=== PATIENT | female | born 1940 | race Caucasian/White ===

== ENCOUNTER 2023-01-22 06:12 | Inpatient (IN) | payer MEDICARE, BC ==
[2023-01-20 14:18] LABS: CLARITY,URINE CLEAR (Clear); COLOR,URINE YELLOW (Yellow); GLUCOSE, URINE NEGATIVE (Neg); KETONES,URINE NEGATIVE (Neg); LEUKOCYTE ESTERASE ,URINE NEGATIVE (Neg); NITRITES, URINE NEGATIVE (Neg); OCCULT BLOOD,URINE NEGATIVE (Neg); PROTEIN,URINE NEGATIVE (Neg); UROBILINOGEN,URINE 0.2 E.U/dL (0.2-1.0)
[2023-01-20 14:20] LABS: UA COLLECTION TYPE CLN CATCH MIDSTREAM
[2023-01-20 15:32] LABS: BASOPHILS % (AUTO) 0.4 % (0-1); EOSINOPHILS % (AUTO) 0.4 % (0-6); LYMPHOCYTES # (AUTO) 2.1 X10'3 (1.1-4.8); LYMPHOCYTES % (AUTO) 29.6 % (21-51); MEAN CORPUSCULAR HEMOGLOBIN 32.3 PG (27.0-31.0); MEAN CORPUSCULAR HGB CONC 33.4 g/dL (33.0-36.5); MEAN CORPUSCULAR VOLUME 96.7 FL (78-98); MEAN PLATELET VOLUME 9.8 FL (7.4-10.4); MONOCYTES # (AUTO) 0.4 X10'3 (0-0.9); MONOCYTES % (AUTO) 6.1 % (2-12); NEUTROPHILS # (AUTO) 4.4 X10'3 (1.8-7.7); NEUTROPHILS % (AUTO) 63.5 % (42-75); PRE OP HEMATOCRIT 44.8 % (35.0-45.0); PRE OP PLATELET COUNT 160 X10'3 (140-440); RED BLOOD COUNT 4.63 X10'6 (4.20-5.60); RED CELL DISTRIBUTION WIDTH 13.4 % (11.5-14.5)
[2023-01-20 15:50] LABS: ALBUMIN 4.1 G/DL (3.4-5.0); ALBUMIN/GLOBULIN RATIO 1.2 (1.1-1.5); ALKALINE PHOSPHATASE 67 IU/L (46-116); CALCIUM 9.8 MG/DL (8.5-10.1); CHLORIDE 100 MMOL/L (99-107); CREATININE 0.94 MG/DL (0.40-0.90); PRE OP ALT 25 U/L (30-65); PRE OP ANION GAP 10 (8-16); PRE OP AST 29 U/L (10-37); PRE OP BILIRUB, TOTAL 1.2 MG/DL (0.0-1.0); PRE OP GLUCOSE 99 MG/DL (70-104); PRE OP POTASSIUM 4.1 MMOL/L (3.4-5.1); PRE OP SODIUM 138 MMOL/L (135-145); TOTAL CARBON DIOXIDE 27.8 MMOL/L (24-32); TOTAL PROTEIN 7.4 G/DL (6.4-8.2); eGFR 57 ML/MIN
[2023-01-20 15:53] LABS: BLOOD UREA NITROGEN 23 MG/DL (7-18); BUN/CREATININE RATIO 24.5 (10.0-20.0)
[2023-01-20 16:00] LABS: ABG BASE EXCESS 1.4 mmol/L (-2.0-2.0); ABG HCO3 24.9 mmol/L (22.0-26.0); ABG OXYGEN SATURATION 96.9 % (94-97); ABG PO2 (T) 90.2 mmHg (75.0-100.0); ALLEN'S TEST POSITIVE; FCOHb 0.9 % (0.0-3.9); FLOW 0 L/min; FMetHb 0.5 % (0.0-1.5); FO2Hb 95.5 % (94-97); TOTAL HEMOGLOBIN 15.6 G/dl (12.0-16.0)
[2023-01-20 16:39] LABS: PRE OP PROTIME 11.1 SECONDS (9.0-12.0)
[~2023-01-22] VITALS: Ht 160 cm; Wt 61.7 kg
[~2023-01-22 06:12] MED LIST: DILT-88 PO; Insulin Reg/NS 100units/100mL 100 ML IV SCH; LEVO50TA8 PO; LORazepam 2 mg/ml vial IV ONE; SPIR25TA5 PO; albuterol 2.5 MG/3 ML nebule NEB PRN; ceFAZolin 1000mg inj ONE; cefazolin 2gm/D5W 100mL 100 ML IV ONE; epiNEPHrine 1 mg/ml inj ONE; famotidine 20mg tablet PO ONE; metoprolol tartrate 12.5mg (1/2 tablet) PO ONE; mupirocin 2% nasal ointment 1gm UD NS ONE; ringers solution, lacted 1,000 ML IV SCH; vancomycin/NS 1 GM in NS 250 ML IV ONE
[2023-01-22] MEDS ORDERED: BUPIVAcaine/PF 2.5 mg/ml (0.25%) 30ml vial ONE (06:38)
[2023-01-22] MEDS ORDERED: LORazepam 2 mg/ml vial ONE (06:58)
[2023-01-22] MEDS ORDERED: sodium bicarbonate (8.4%) 1 mEq/ml syringe ONE (07:00)
[2023-01-22] MEDS ORDERED: calcium chloride 100 MG/1 ML inj IV ONE (07:00)
[2023-01-22] MEDS ORDERED: magnesium sulf 1 GM/2 ML ONE (07:00)
[2023-01-22] MEDS ORDERED: heparin 1,000 units/ml 10ml inj ONE (07:00)
[2023-01-22] MEDS ORDERED: albumin (human) 25% 100 ML IV solution IV ONE (07:00)
[2023-01-22] MEDS ORDERED: LIDOcaine 2% 10ml vial ONE (07:00)
[2023-01-22] MEDS ORDERED: aminocaproic acid 250 MG/1 ML inj. ONE (07:00)
[2023-01-22] MEDS ORDERED: methylPREDNISolone sod succ 1000mg vial ONE (07:00)
[2023-01-22] MEDS ORDERED: heparin 10,000 units/1 ML INJ ONE (07:00)
[2023-01-22] MEDS ORDERED: potassium Cl 2 mEq/ml inj IV ONE (07:00)
[2023-01-22] MEDS ORDERED: mannitol 12.5gm/50mL VIAL IV ONE (07:00)
--- NOTE | 2023-01-22 07:30 | NUR ---
PT ADMITTED FOR CABG THIS MORNING-PREP FINISHED, WHILE WAITING FOR DR'S-WAS DETERMINED TO HAVE CONFLICT RE:SURGERY TODAY. PT WILL BE ADMITTED TO STAY OVERNIGHT AND HAVE SX TOMORROW INSTEAD. PT AND FRIENDS UNDERSTAND, ABLE TO FEED BREAKFAST, WAITING FOR A BED.
[2023-01-22] MEDS ORDERED: potassium CL 10mEq/100ml bag 100 ML IV PRN (09:15)
[2023-01-22] MEDS ORDERED: vancomycin/NS 1 GM ADD-VANTAGE 250 ML IV ONE (09:15)
[2023-01-22] MEDS ORDERED: potassium Cl 40MEQ/270ML bag 250 ML IV PRN (09:15)
[2023-01-22] MEDS ORDERED: gabapentin 400mg capsule PO ONE (09:15)
[2023-01-22] MEDS ORDERED: MESSAGE TO PHARMACY IJ ONE (09:15)
[2023-01-22] MEDS ORDERED: potassium Cl 20 mEq SR tablet PO PRN (09:15)
[2023-01-22] MEDS ORDERED: Insulin Reg/NS 100units/100mL 100 ML IV SCH (09:15)
[2023-01-22] MEDS ORDERED: insulin glargine (Lantus) pen - multi-dose SQ PRN (09:15)
[2023-01-22] MEDS ORDERED: magnesium 4gm in 100ml NS 100 ML IV PRN (09:15)
[2023-01-22] MEDS ORDERED: magnesium 2GM in 50ml NS 50 ML IV PRN (09:15)
[2023-01-22] MEDS ORDERED: dextrose 50%-water 50ml dispensing syringe IV PRN (09:15)
[2023-01-22] MEDS ORDERED: potassium Cl 40MEQ/1/2NS 520ml 520 ML IV PRN (09:15)
[2023-01-22] MEDS ORDERED: cefazolin 2gm/D5W 100mL 100 ML IV ONE (09:15)
--- NOTE | 2023-01-22 11:30 | NUR ---
REPORT CALLED TO SONA, ALL QUESTIONS ANSWERED, PT TAKEN WITH ALL BELONGINGS TO ROOM 3028B, BED LOW AND LOCKED, CALL LIGHT IN REACH, PRIMARY NURSE AWARE
--- NOTE | 2023-01-22 11:35 | NUR ---
Patient in room PCU 3028. I have received report from Carmelita CRAFT and had the opportunity to ask questions and assume patient care.Pt settled into room. Call light in reach. Addendum: 01/22/23 at 1158 by Juana Doshi RN Amended: Links added.
[2023-01-22 11:50] VITALS: BP 102/50
[2023-01-22 12:43] LABS: BASOPHILS % (AUTO) 0.7 % (0-1); EOSINOPHILS % (AUTO) 0.7 % (0-6); HEMATOCRIT 41.4 % (35.0-45.0); LYMPHOCYTES # (AUTO) 1.8 X10'3 (1.1-4.8); LYMPHOCYTES % (AUTO) 29.6 % (21-51); MEAN CORPUSCULAR HEMOGLOBIN 32.7 PG (27.0-31.0); MEAN CORPUSCULAR HGB CONC 33.8 g/dL (33.0-36.5); MONOCYTES # (AUTO) 0.5 X10'3 (0-0.9); MONOCYTES % (AUTO) 8.2 % (2-12); NEUTROPHILS # (AUTO) 3.7 X10'3 (1.8-7.7); NEUTROPHILS % (AUTO) 60.8 % (42-75); PLATELET COUNT 142 X10'3 (140-440); RED BLOOD COUNT 4.26 X10'6 (4.20-5.60); RED CELL DISTRIBUTION WIDTH 13.8 % (11.5-14.5)
[2023-01-22 12:55] LABS: ALBUMIN 3.6 G/DL (3.4-5.0); ANION GAP 11 (8-16); BLOOD UREA NITROGEN 26 MG/DL (7-18); BUN/CREATININE RATIO 25.2 (10.0-20.0); CALCIUM 9.2 MG/DL (8.5-10.1); CHLORIDE 104 MMOL/L (99-107); CREATININE 1.03 MG/DL (0.40-0.90); GLUCOSE 83 MG/DL (70-104); SODIUM 140 MMOL/L (135-145); TOTAL CARBON DIOXIDE 24.9 MMOL/L (24-32); eGFR 51 ML/MIN
[2023-01-22 14:41] VITALS: BP 101/64
--- NOTE | 2023-01-22 18:00 | NUR ---
Problems reprioritized. Patient report given, questions answered & plan of care reviewed with Yomaira CRAFT.
--- NOTE | 2023-01-22 18:24 | NUR ---
Problems reprioritized. Patient report given, questions answered & plan of care reviewed with Trupti CRAFT. Pt eating dinner, watching movie on tablet. Call light in reach. Addendum: 01/22/23 at 1825 by Juana Doshi RN Amended: Links added.
[2023-01-22 20:50] VITALS: BP 114/70
[2023-01-22] MEDS: spironolactone 25 MG tablet PO SCH (21:37)
[2023-01-22] MEDS: mupirocin 2% nasal ointment 1gm UD NS SCH (21:38)
[2023-01-23] VITALS (32 sets, daily range): BP systolic 77–134; BP diastolic 46–73
[2023-01-23] MEDS ORDERED: vancomycin/NS 1 GM ADD-VANTAGE 250 ML IV ONE (05:30)
[2023-01-23] MEDS ORDERED: insulin glargine (Lantus) pen - multi-dose SQ PRN ×2 (05:30→12:25)
[2023-01-23] MEDS ORDERED: cefazolin 2gm/D5W 100mL 100 ML IV ONE (05:30)
[2023-01-23] MEDS ORDERED: BUPIVAcaine 0.5% inj/PF 30 ML ONE (06:42)
[2023-01-23] MEDS ORDERED: ceFAZolin 1000mg inj ONE (06:42)
--- NOTE | 2023-01-23 06:45 | NUR ---
Problems reprioritized. Patient report given, questions answered & plan of care reviewed with Juana CRAFT.
[2023-01-23] MEDS ORDERED: epiNEPHrine 1 mg/ml inj ONE (06:46)
[2023-01-23] MEDS: levoTHYROXINE 25mcg tablet PO SCH (07:00)
[2023-01-23] MEDS ORDERED: ceFAZolin 1000mg inj IR ONE (07:30)
[2023-01-23] MEDS ORDERED: epiNEPHrine 1 MG/ML 1 ml ampule **BRONCH ONLY IJ ONE (07:31)
[2023-01-23] MEDS ORDERED: heparin 10,000 units/1 ML INJ IR ONE (07:32)
[2023-01-23] MEDS ORDERED: SUfentanil 50mcg/ml 1ml amp IV ONE (07:41)
[2023-01-23] MEDS ORDERED: propofol inj 20 ML IV ONE (07:41)
[2023-01-23] MEDS ORDERED: MIDAZolam 1 MG/ML 5ML VIAL ONE (07:41)
[2023-01-23] MEDS ORDERED: sevoflurane 250ml liquid IH ONE (07:43)
[2023-01-23] MEDS ORDERED: rocuronium 10mg/ml inj IV ONE ×3 (07:43→07:44)
[2023-01-23] MEDS ORDERED: protamine sulf. 10mg/ml inj. IV ONE (07:43)
[2023-01-23] MEDS: mupirocin 2% nasal ointment 1gm UD NS SCH ×2 (08:00→19:48)
[2023-01-23] MEDS ORDERED: spironolactone 25 MG tablet PO SCH (08:00)
[2023-01-23] MEDS: diltiazem CD 120mg capsule (once-daily) PO SCH (08:00)
[2023-01-23 08:39] LABS: ABG BASE EXCESS 2.7 mmol/L (-2.0-2.0); ABG HCO3 25.9 mmol/L (22.0-26.0); ABG OXYGEN SATURATION 99.1 % (94-97); ABG PCO2 35.2 mmHg (32.0-45.0); ABG PO2 146.5 mmHg (75.0-100.0); CL (ABG) 104 mmol/L (99-107); FCOHb 0.9 % (0.0-3.9); FMetHb 0.1 % (0.0-1.5); FO2Hb 98.1 % (94-97); GLUCOSE (ABG) 110 mg/dl (70-104); IONIZED CA (ABG) 1.14 mmol/L (1.10-1.30); K (ABG) 3.8 mmol/L (3.5-5.1); TOTAL HEMOGLOBIN 13.7 G/dl (12.0-16.0)
[2023-01-23 09:42] LABS: ABG BASE EXCESS 2.8 mmol/L (-2.0-2.0); ABG HCO3 25.6 mmol/L (22.0-26.0); ABG OXYGEN SATURATION 99.5 % (94-97); ABG PCO2 31.5 mmHg (32.0-45.0); ABG PO2 431.2 mmHg (75.0-100.0); CL (ABG) 101 mmol/L (99-107); FCOHb 0.6 % (0.0-3.9); FMetHb 0.3 % (0.0-1.5); FO2Hb 98.6 % (94-97); GLUCOSE (ABG) 113 mg/dl (70-104); IONIZED CA (ABG) 0.89 mmol/L (1.10-1.30); K (ABG) 3.7 mmol/L (3.5-5.1); TOTAL HEMOGLOBIN 7.9 G/dl (12.0-16.0)
[2023-01-23 10:23] LABS: ABG BASE EXCESS VENOUS -2.5 mmol/L (-2.0 - 2.0); ABG HCO3 VENOUS 25.8 mmol/L (21.0-28.0); ABG PO2 VENOUS 74.8 mmHg (25.0-35.0); CL (ABG) 101 mmol/L (99-107); FHHb VENOUS 10.5 %; FMetHb VENOUS 0.2 % (0.0 - 0.5); FO2Hb VENOUS 88.3 %; GLUCOSE (ABG) 139 mg/dl (70-104); IONIZED CA (ABG) 0.95 mmol/L (1.10-1.30); K (ABG) 4.4 mmol/L (3.5-5.1); TOTAL HEMOGLOBIN 7.7 G/dl (12.0-16.0)
[2023-01-23 10:41] LABS: ABG BASE EXCESS -1.7 mmol/L (-2.0-2.0); ABG HCO3 24.9 mmol/L (22.0-26.0); ABG OXYGEN SATURATION 99.4 % (94-97); ABG PCO2 52.6 mmHg (32.0-45.0); ABG PO2 280.2 mmHg (75.0-100.0); CL (ABG) 102 mmol/L (99-107); FCOHb 0.8 % (0.0-3.9); FMetHb 0.1 % (0.0-1.5); FO2Hb 98.5 % (94-97); GLUCOSE (ABG) 148 mg/dl (70-104); IONIZED CA (ABG) 0.91 mmol/L (1.10-1.30); K (ABG) 4.2 mmol/L (3.5-5.1); TOTAL HEMOGLOBIN 7.6 G/dl (12.0-16.0)
[2023-01-23 11:05] LABS: ABG BASE EXCESS 1.3 mmol/L (-2.0-2.0); ABG HCO3 25.2 mmol/L (22.0-26.0); ABG OXYGEN SATURATION 99.5 % (94-97); ABG PCO2 35.8 mmHg (32.0-45.0); ABG PO2 345.9 mmHg (75.0-100.0); CL (ABG) 101 mmol/L (99-107); FCOHb 1.2 % (0.0-3.9); FMetHb 0.3 % (0.0-1.5); GLUCOSE (ABG) 137 mg/dl (70-104); IONIZED CA (ABG) 1.34 mmol/L (1.10-1.30)
--- NOTE | 2023-01-23 11:26 | NUR ---
Noted pt s/p CABG today per EMR; would benefit from written/verbal high protein/HH diet eds once appropriate post-op prior to discharge. Addendum: 01/23/23 at [address] Amended: Links added. Addendum: 01/23/23 at [address] CABG Consult: Pt s/p CABG today per EMR; would benefit from written/verbal high protein/HH diet eds once appropriate post-op prior to discharge.
[2023-01-23 11:29] LABS: ABG BASE EXCESS VENOUS -0.3 mmol/L (-2.0 - 2.0); ABG HCO3 VENOUS 24.5 mmol/L (21.0-28.0); ABG PCO2 VENOUS 40.9 mmHg (38.0-51.0); ABG PO2 VENOUS 33.8 mmHg (25.0-35.0); CL (ABG) 105 mmol/L (99-107); FCOHb VENOUS 1.3 % (0.0- 3.9); FHHb VENOUS 39.8 %; FMetHb VENOUS 0.3 % (0.0 - 0.5); FO2Hb VENOUS 58.6 %; GLUCOSE (ABG) 119 mg/dl (70-104); IONIZED CA (ABG) 1.26 mmol/L (1.10-1.30); K (ABG) 3.7 mmol/L (3.5-5.1)
[2023-01-23 11:33] LABS: ACTIVATED CLOTTING TIME 136 SEC (101-148)
[2023-01-23 11:52] LABS: ABG BASE EXCESS VENOUS -3.4 mmol/L (-2.0 - 2.0); ABG PO2 VENOUS 34.3 mmHg (25.0-35.0); CL (ABG) 113 mmol/L (99-107); FCOHb VENOUS 0.9 % (0.0- 3.9); FHHb VENOUS 39.4 %; FMetHb VENOUS 0.1 % (0.0 - 0.5); FO2Hb VENOUS 59.6 %; GLUCOSE (ABG) 103 mg/dl (70-104); IONIZED CA (ABG) > 2.84 mmol/L (1.10-1.30); K (ABG) 3.3 mmol/L (3.5-5.1); TOTAL HEMOGLOBIN 10.3 G/dl (12.0-16.0)
[2023-01-23] MEDS ORDERED: albumin (Human) 5% 250ml 250 ML IV ONE ×3 (11:55)
[2023-01-23] MEDS ORDERED: mineral oil 133ml enema RC PRN (12:25)
[2023-01-23] MEDS ORDERED: metoclopramide 5 mg/ml inj IV PRN (12:25)
[2023-01-23] MEDS ORDERED: sodium phosphate inj. 30 MMOL in dextrose 5%-water 250 ML IV PRN (12:25)
[2023-01-23] MEDS ORDERED: potassium Cl 20 mEq SR tablet PO PRN (12:25)
[2023-01-23] MEDS ORDERED: niCARDipine-NS 40mg/200ml IVPB 200 ML IV PRN (12:25)
[2023-01-23] MEDS ORDERED: nitroGLYCERIN-Tridil 50MG/D5W 250 ML IV PRN ×2 (12:25→12:37)
[2023-01-23] MEDS ORDERED: magnesium hydroxide 30ml (MOM) UD suspension PO PRN (12:25)
[2023-01-23] MEDS ORDERED: DOPamine 400mg/D5W 250ml 250 ML IV PRN (12:25)
[2023-01-23] MEDS ORDERED: dextrose 50%-water 50ml dispensing syringe IV PRN (12:25)
[2023-01-23] MEDS ORDERED: Insulin Reg/NS 100units/100mL 100 ML IV SCH (12:25)
[2023-01-23] MEDS ORDERED: HYDROcodone/acetaminophen 10/325mg tab PO PRN (12:25)
[2023-01-23] MEDS ORDERED: acetaminophen 325mg tablet PO PRN ×2 (12:25)
[2023-01-23] MEDS: sodium chloride 0.45% 1,000 ML IV SCH (12:25)
[2023-01-23] MEDS ORDERED: ondansetron/PF 4mg/2ml inj IV PRN (12:25)
[2023-01-23] MEDS ORDERED: Neutra Phos packet PO PRN (12:25)
[2023-01-23] MEDS ORDERED: bisacodyl 10mg suppository rectal RC PRN (12:25)
[2023-01-23] MEDS ORDERED: potassium CL 10mEq/100ml bag 100 ML IV PRN (12:25)
[2023-01-23] MEDS ORDERED: sodium phosphate inj. 15 MMOL in dextrose 5%-water 250 ML IV PRN (12:25)
[2023-01-23] MEDS ORDERED: potassium Cl 40MEQ/1/2NS 520ml 520 ML IV PRN (12:25)
[2023-01-23] MEDS ORDERED: magnesium 2GM in 50ml NS 50 ML IV PRN (12:25)
[2023-01-23] MEDS ORDERED: morphine 4 MG/ML inj SYRINge IV PRN (12:25)
[2023-01-23] MEDS ORDERED: magnesium 4gm in 100ml NS 100 ML IV PRN (12:25)
[2023-01-23] MEDS ORDERED: normal saline 250ml IV soln 250 ML IV PRN (12:25)
[2023-01-23] MEDS ORDERED: potassium Cl 40MEQ/270ML bag 250 ML IV PRN (12:25)
[2023-01-23] MEDS ORDERED: MESSAGE TO NURSING PO ONE (13:00)
[2023-01-23] MEDS: NORepinephrine 8mg/ 250ml NS 250 ML IV SCH (13:00)
--- NOTE | 2023-01-23 13:00 | NUR ---
Received to room 2010-, accompanied by MDs and surgical crew. Placed on ventilator, to quality assurance monitor chassis, arterial line and PA line pressure zeroed & monitored. Chest tubes to suction at 20 cm. Meyer cath to gravity drainage. Dressings are dry and intact. See assessment record. All vasoactive drugs are infusing via central line.
[2023-01-23 13:06] LABS: ABG BASE EXCESS -1.3 mmol/L (-2.0-2.0); ABG HCO3 24.1 mmol/L (22.0-26.0); ABG OXYGEN SATURATION 97.9 % (94-97); ABG PO2 (T) 141.1 mmHg (75.0-100.0); FCOHb 0.2 % (0.0-3.9); FMetHb 0.8 % (0.0-1.5); FO2Hb 96.9 % (94-97); PATIENT TEMPERATURE 34.6; PEEP 5 cm H2O; RESPIRATORY RATE 12 b/min; TIDAL VOLUME 350 mL; TOTAL HEMOGLOBIN 9.3 G/dl (12.0-16.0)
[2023-01-23 13:13] LABS: BASOPHILS % (AUTO) 0.1 % (0-1); EOSINOPHILS % (AUTO) 0.3 % (0-6); HEMATOCRIT 27.5 % (35.0-45.0); HEMOGLOBIN 8.9 g/dl (12.0-16.0); LYMPHOCYTES # (AUTO) 1.6 X10'3 (1.1-4.8); LYMPHOCYTES % (AUTO) 15.1 % (21-51); MEAN CORPUSCULAR HEMOGLOBIN 31.9 PG (27.0-31.0); MEAN CORPUSCULAR HGB CONC 32.5 g/dL (33.0-36.5); MEAN CORPUSCULAR VOLUME 97.9 FL (78-98); MEAN PLATELET VOLUME 9.6 FL (7.4-10.4); MONOCYTES # (AUTO) 0.7 X10'3 (0-0.9); MONOCYTES % (AUTO) 6.5 % (2-12); NEUTROPHILS # (AUTO) 8.1 X10'3 (1.8-7.7); RED CELL DISTRIBUTION WIDTH 13.7 % (11.5-14.5); WHITE BLOOD COUNT 10.4 X10'3 (4.5-11.0)
[2023-01-23 13:26] LABS: APTT 62 SECONDS (22-32)
[2023-01-23 13:36] LABS: ALANINE AMINOTRANSFERASE 9 U/L (12-78); ALBUMIN/GLOBULIN RATIO 2.7 (1.1-1.5); ALKALINE PHOSPHATASE 15 IU/L (46-116); ANION GAP 13 (8-16); ASPARTATE AMINO TRANSFERASE 19 U/L (10-37); BLOOD UREA NITROGEN 13 MG/DL (7-18); BUN/CREATININE RATIO 23.2 (10.0-20.0); CALCIUM 7.9 MG/DL (8.5-10.1); CHLORIDE 108 MMOL/L (99-107); CREATININE 0.56 MG/DL (0.40-0.90); GLUCOSE 119 MG/DL (70-104); MAGNESIUM 3.4 MG/DL (1.5-2.4); PHOSPHORUS 2.4 MG/DL (2.3-4.5); POTASSIUM 3.7 MMOL/L (3.5-5.1); SODIUM 144 MMOL/L (135-145); TOTAL CARBON DIOXIDE 23.4 MMOL/L (24-32); TOTAL PROTEIN 4.1 G/DL (6.4-8.2); eGFR > 90 ML/MIN
[2023-01-23 13:44] LABS: PLATELET COUNT 47 X10'3 (140-440)
[2023-01-23] MEDS: gabapentin 300mg capsule PO SCH ×2 (13:45→21:16)
[2023-01-23] MEDS: albumin (Human) 5% 250ml 250 ML IV PRN ×2 (13:46→19:49)
[2023-01-23] MEDS: potassium Cl 20mEq/100mL bag 100 ML IV PRN ×3 (13:46→16:23)
--- NOTE | 2023-01-23 13:59 | NUR ---
Plt down to 47, Fibrinogen 83 and >200ml out of chest tube in the last 1h; Dr. Mcwilliams called; orders for x1 unit plt and x2 units FFP. CI up to 1.9 from 1.5.
[2023-01-23] MEDS: Insulin Reg/NS 100units/100mL 100 ML IV SCH (14:14)
[2023-01-23 14:17] LABS: PLATELET ESTIMATE DECREASED; TOTAL CELLS COUNTED 100
[2023-01-23] MEDS: ceFAZolin/D5W- 1GM premix 50 ML IV SCH ×2 (15:57→23:48)
--- NOTE | 2023-01-23 18:10 | NUR ---
Problems reprioritized. Patient report given, questions answered & plan of care reviewed with Margareth CRAFT.
--- NOTE | 2023-01-23 18:15 | NUR ---
Patient in room CICU 2010. I have received report from Jez CRATF and had the opportunity to ask questions and assume patient care.
[2023-01-23] MEDS: sennosides/docusate sodium tablet PO SCH (19:48)
[2023-01-23 20:13] LABS: BASOPHILS % (AUTO) 0 % (0-1); EOSINOPHILS % (AUTO) 0 % (0-6); LYMPHOCYTES # (AUTO) 0.2 X10'3 (1.1-4.8); LYMPHOCYTES % (AUTO) 2.1 % (21-51); MEAN CORPUSCULAR HEMOGLOBIN 32.6 PG (27.0-31.0); MEAN CORPUSCULAR HGB CONC 33.6 g/dL (33.0-36.5); MEAN CORPUSCULAR VOLUME 96.8 FL (78-98); MEAN PLATELET VOLUME 9.5 FL (7.4-10.4); MONOCYTES # (AUTO) 0.3 X10'3 (0-0.9); MONOCYTES % (AUTO) 3.7 % (2-12); NEUTROPHILS # (AUTO) 7.1 X10'3 (1.8-7.7); NEUTROPHILS % (AUTO) 94.2 % (42-75); PLATELET COUNT 152 X10'3 (140-440); RED BLOOD COUNT 1.94 X10'6 (4.20-5.60); RED CELL DISTRIBUTION WIDTH 13.8 % (11.5-14.5); WHITE BLOOD COUNT 7.6 X10'3 (4.5-11.0)
[2023-01-23 20:18] LABS: HEMATOCRIT 18.8 % (35.0-45.0); HEMOGLOBIN 6.3 g/dl (12.0-16.0)
[2023-01-23 20:22] LABS: ALBUMIN 3.6 G/DL (3.4-5.0); ANION GAP 10 (8-16); APTT 26 SECONDS (22-32); BLOOD UREA NITROGEN 15 MG/DL (7-18); BUN/CREATININE RATIO 17.2 (10.0-20.0); CALCIUM 7.9 MG/DL (8.5-10.1); CHLORIDE 109 MMOL/L (99-107); CREATININE 0.87 MG/DL (0.40-0.90); GLUCOSE 119 MG/DL (70-104); MAGNESIUM 2.8 MG/DL (1.5-2.4); PHOSPHORUS 2.8 MG/DL (2.3-4.5); POTASSIUM 4.6 MMOL/L (3.5-5.1); SODIUM 144 MMOL/L (135-145); TOTAL CARBON DIOXIDE 25.2 MMOL/L (24-32); eGFR 62 ML/MIN
--- NOTE | 2023-01-23 20:31 | NUR ---
Pt remains sleepy. 6hour labs with critical H/H called to Dr Mcwilliams, orders for 2 units PRBC. CI 1.7 pre blood product, 2nd albumin finishing, Levo at 0.04mcg/kg/min.
[2023-01-23] MEDS: vancomycin/NS 1 GM ADD-VANTAGE 250 ML IV SCH (20:54)
[2023-01-23] MEDS: atorvastatin 10mg tablet PO SCH (21:16)
[2023-01-23] MEDS: spironolactone 25 MG tablet PO SCH (22:00)
[2023-01-24] VITALS (32 sets, daily range): BP systolic 96–155; BP diastolic 59–96
[2023-01-24 02:45] LABS: BASOPHILS % (AUTO) 0 % (0-1); EOSINOPHILS % (AUTO) 0 % (0-6); HEMOGLOBIN 9.4 g/dl (12.0-16.0); LYMPHOCYTES # (AUTO) 0.3 X10'3 (1.1-4.8); LYMPHOCYTES % (AUTO) 4.8 % (21-51); MEAN CORPUSCULAR HEMOGLOBIN 31.1 PG (27.0-31.0); MEAN CORPUSCULAR HGB CONC 33.4 g/dL (33.0-36.5); MEAN CORPUSCULAR VOLUME 92.9 FL (78-98); MEAN PLATELET VOLUME 9.6 FL (7.4-10.4); MONOCYTES # (AUTO) 0.3 X10'3 (0-0.9); MONOCYTES % (AUTO) 5.3 % (2-12); NEUTROPHILS # (AUTO) 5.1 X10'3 (1.8-7.7); NEUTROPHILS % (AUTO) 89.9 % (42-75); PLATELET COUNT 108 X10'3 (140-440); RED BLOOD COUNT 3.02 X10'6 (4.20-5.60); WHITE BLOOD COUNT 5.7 X10'3 (4.5-11.0)
[2023-01-24 02:53] LABS: APTT 25 SECONDS (22-32)
[2023-01-24 02:57] LABS: ALANINE AMINOTRANSFERASE 29 U/L (12-78); ALBUMIN 3.6 G/DL (3.4-5.0); ALBUMIN/GLOBULIN RATIO 1.8 (1.1-1.5); ALKALINE PHOSPHATASE 40 IU/L (46-116); ANION GAP 9 (8-16); ASPARTATE AMINO TRANSFERASE 42 U/L (10-37); BILIRUBIN,TOTAL 1.4 MG/DL (0.1-1.0); BLOOD UREA NITROGEN 13 MG/DL (7-18); BUN/CREATININE RATIO 17.6 (10.0-20.0); CHLORIDE 107 MMOL/L (99-107); CREATININE 0.74 MG/DL (0.40-0.90); GLUCOSE 118 MG/DL (70-104); MAGNESIUM 2.5 MG/DL (1.5-2.4); PHOSPHORUS 3.3 MG/DL (2.3-4.5); POTASSIUM 3.9 MMOL/L (3.5-5.1); SODIUM 141 MMOL/L (135-145); TOTAL CARBON DIOXIDE 24.8 MMOL/L (24-32); TOTAL PROTEIN 5.6 G/DL (6.4-8.2); eGFR 75 ML/MIN
[2023-01-24 03:45] LABS: ABG BASE EXCESS 0.7 mmol/L (-2.0-2.0); ABG HCO3 24.6 mmol/L (22.0-26.0); ABG OXYGEN SATURATION 94.2 % (94-97); ABG PCO2 (T) 36.8 mmHg (32.0-45.0); ABG PO2 (T) 72.5 mmHg (75.0-100.0); FCOHb 0.3 % (0.0-3.9); FMetHb 0.4 % (0.0-1.5); FO2Hb 93.5 % (94-97); PATIENT TEMPERATURE 37.2; RESPIRATORY RATE 10 b/min; TIDAL VOLUME 350 mL; TOTAL HEMOGLOBIN 10.5 G/dl (12.0-16.0)
[2023-01-24] MEDS: potassium Cl 20mEq/100mL bag 100 ML IV PRN ×4 (04:16→15:15)
--- NOTE | 2023-01-24 04:25 | NUR ---
CI remained low after blood product. Turned pacemaker on for atrial recruitment and Tridil on to decrease SVR. CI now above 2.
--- NOTE | 2023-01-24 04:40 | NUR ---
Pt wakes to stimuli and follows commands, falls asleep quickly after.
--- NOTE | 2023-01-24 06:19 | NUR ---
Problems reprioritized. Patient report given, questions answered & plan of care reviewed with Jez CRAFT.
[2023-01-24] MEDS: mupirocin 2% nasal ointment 1gm UD NS SCH ×2 (07:39→20:00)
[2023-01-24] MEDS: aspirin 81mg tab.chew PO SCH (07:39)
[2023-01-24] MEDS: vancomycin/NS 1 GM ADD-VANTAGE 250 ML IV SCH ×2 (07:39→21:24)
[2023-01-24] MEDS: sennosides/docusate sodium tablet PO SCH ×2 (07:39→21:24)
[2023-01-24] MEDS: ceFAZolin/D5W- 1GM premix 50 ML IV SCH ×2 (07:39→16:48)
[2023-01-24] MEDS: levoTHYROXINE 25mcg tablet PO SCH (07:40)
[2023-01-24] MEDS: gabapentin 300mg capsule PO SCH (08:00)
[2023-01-24] MEDS: metoprolol tartrate 12.5mg (1/2 tablet) PO SCH ×2 (08:00→21:24)
[2023-01-24] MEDS: diltiazem CD 120mg capsule (once-daily) PO SCH (08:00)
[2023-01-24] MEDS: spironolactone 25 MG tablet PO SCH (08:00)
[2023-01-24] MEDS: albumin (Human) 5% 250ml 250 ML IV PRN (08:21)
[2023-01-24] MEDS: NORepinephrine 8mg/ 250ml NS 250 ML IV SCH (10:06)
[2023-01-24] MEDS ORDERED: albumin (human) 25% 100 ML IV solution IV ONE (10:40)
[2023-01-24 13:39] LABS: BASOPHILS % (AUTO) 0 % (0-1); EOSINOPHILS % (AUTO) 0 % (0-6); HEMOGLOBIN 8.3 g/dl (12.0-16.0); LYMPHOCYTES # (AUTO) 0.5 X10'3 (1.1-4.8); LYMPHOCYTES % (AUTO) 6.3 % (21-51); MEAN CORPUSCULAR HGB CONC 33.3 g/dL (33.0-36.5); MEAN CORPUSCULAR VOLUME 93.2 FL (78-98); MEAN PLATELET VOLUME 9.6 FL (7.4-10.4); MONOCYTES # (AUTO) 0.5 X10'3 (0-0.9); MONOCYTES % (AUTO) 5.7 % (2-12); NEUTROPHILS # (AUTO) 7.2 X10'3 (1.8-7.7); PLATELET COUNT 93 X10'3 (140-440); RED BLOOD COUNT 2.69 X10'6 (4.20-5.60); RED CELL DISTRIBUTION WIDTH 15.2 % (11.5-14.5); WHITE BLOOD COUNT 8.2 X10'3 (4.5-11.0)
[2023-01-24 13:48] LABS: ANION GAP 14 (8-16); BLOOD UREA NITROGEN 13 MG/DL (7-18); BUN/CREATININE RATIO 20.6 (10.0-20.0); CALCIUM 8.2 MG/DL (8.5-10.1); CHLORIDE 103 MMOL/L (99-107); CREATININE 0.63 MG/DL (0.40-0.90); GLUCOSE 133 MG/DL (70-104); POTASSIUM 4.2 MMOL/L (3.5-5.1); SODIUM 140 MMOL/L (135-145); TOTAL CARBON DIOXIDE 22.7 MMOL/L (24-32); eGFR > 90 ML/MIN
[2023-01-24] MEDS: Insulin Reg/NS 100units/100mL 100 ML IV SCH (14:50)
--- NOTE | 2023-01-24 15:03 | NUR ---
at bedside extubated pt prior to RT at bedside, VENANCIO Anaya at bedside, pt awake alert no distress c/o pain with breathing due to Chest tubes. RT assessed BS coarse clear with cough, splinting encouraged with cardiac pillow, DB&C, no stridor present. Addendum: 01/24/23 at 1505 by Precious Max RT Amended: Links added.
[2023-01-24] MEDS: morphine 2 MG/ML inj. syringe IV PRN ×2 (15:08→18:56)
--- NOTE | 2023-01-24 18:15 | NUR ---
Problems reprioritized. Patient report given, questions answered & plan of care reviewed with Prince CRAFT.
--- NOTE | 2023-01-24 19:08 | NUR ---
Patient currently non compliant and impulsive with sternal precautions. Gave norcos and morphine for breakthrough pain. Will be watching closely maintain sternal precautions post CABG.
[2023-01-24] MEDS: atorvastatin 10mg tablet PO SCH (21:24)
[2023-01-25] VITALS (24 sets, daily range): BP systolic 87–148; BP diastolic 58–92
[2023-01-25] MEDS: ceFAZolin/D5W- 1GM premix 50 ML IV SCH (00:24)
[2023-01-25 03:09] LABS: BASOPHILS % (AUTO) 0.1 % (0-1); EOSINOPHILS % (AUTO) 0 % (0-6); HEMATOCRIT 28.3 % (35.0-45.0); HEMOGLOBIN 9.3 g/dl (12.0-16.0); LYMPHOCYTES # (AUTO) 0.9 X10'3 (1.1-4.8); LYMPHOCYTES % (AUTO) 7.4 % (21-51); MEAN CORPUSCULAR HEMOGLOBIN 30.6 PG (27.0-31.0); MEAN CORPUSCULAR HGB CONC 32.9 g/dL (33.0-36.5); MEAN CORPUSCULAR VOLUME 93.2 FL (78-98); MEAN PLATELET VOLUME 10.4 FL (7.4-10.4); MONOCYTES # (AUTO) 0.9 X10'3 (0-0.9); MONOCYTES % (AUTO) 7.5 % (2-12); NEUTROPHILS # (AUTO) 10.2 X10'3 (1.8-7.7); PLATELET COUNT 102 X10'3 (140-440); RED BLOOD COUNT 3.03 X10'6 (4.20-5.60); RED CELL DISTRIBUTION WIDTH 15.3 % (11.5-14.5)
[2023-01-25 03:30] LABS: ALBUMIN 3.9 G/DL (3.4-5.0); ANION GAP 7 (8-16); BLOOD UREA NITROGEN 14 MG/DL (7-18); BUN/CREATININE RATIO 21.2 (10.0-20.0); CALCIUM 8.2 MG/DL (8.5-10.1); CHLORIDE 101 MMOL/L (99-107); CREATININE 0.66 MG/DL (0.40-0.90); GLUCOSE 136 MG/DL (70-104); MAGNESIUM 2.2 MG/DL (1.5-2.4); PHOSPHORUS 2.9 MG/DL (2.3-4.5); POTASSIUM 4.4 MMOL/L (3.5-5.1); SODIUM 135 MMOL/L (135-145); TOTAL CARBON DIOXIDE 26.9 MMOL/L (24-32); eGFR 86 ML/MIN
[2023-01-25] MEDS: HYDROcodone/acetaminophen 10/325mg tab PO PRN ×2 (04:19→08:46)
[2023-01-25] MEDS: NORepinephrine 8mg/ 250ml NS 250 ML IV SCH ×2 (07:12→19:06)
[2023-01-25] MEDS: metoprolol tartrate 12.5mg (1/2 tablet) PO SCH ×2 (08:00→20:00)
[2023-01-25] MEDS: pantoprazole 40mg Tablet.DR PO SCH (08:07)
[2023-01-25] MEDS: aspirin 81mg tab.chew PO SCH (08:07)
[2023-01-25] MEDS: sennosides/docusate sodium tablet PO SCH ×2 (08:07→20:00)
[2023-01-25] MEDS: mupirocin 2% nasal ointment 1gm UD NS SCH (08:08)
[2023-01-25] MEDS: levoTHYROXINE 25mcg tablet PO SCH (08:09)
[2023-01-25] MEDS ORDERED: albumin (human) 25% 100 ML IV solution IV ONE (09:05)
[2023-01-25] MEDS: sodium chloride 0.45% 1,000 ML IV SCH (12:25)
[2023-01-25] MEDS ORDERED: HYDROcodone/acetaminophen 5mg/325mg tablet PO PRN (16:45)
--- NOTE | 2023-01-25 18:30 | NUR ---
Problems reprioritized. Patient report given, questions answered & plan of care reviewed with Krista CRAFT.
[2023-01-25] MEDS: Insulin Reg/NS 100units/100mL 100 ML IV SCH (19:06)
[2023-01-25] MEDS: atorvastatin 10mg tablet PO SCH (20:00)
[2023-01-26] VITALS (24 sets, daily range): BP systolic 93–140; BP diastolic 47–84
[2023-01-26 02:47] LABS: BASOPHILS % (AUTO) 0.1 % (0-1); EOSINOPHILS % (AUTO) 0 % (0-6); HEMOGLOBIN 9.5 g/dl (12.0-16.0); LYMPHOCYTES # (AUTO) 0.8 X10'3 (1.1-4.8); LYMPHOCYTES % (AUTO) 6.9 % (21-51); MEAN CORPUSCULAR HEMOGLOBIN 31.7 PG (27.0-31.0); MEAN CORPUSCULAR HGB CONC 33.8 g/dL (33.0-36.5); MEAN CORPUSCULAR VOLUME 93.9 FL (78-98); MONOCYTES # (AUTO) 0.8 X10'3 (0-0.9); MONOCYTES % (AUTO) 6.6 % (2-12); NEUTROPHILS # (AUTO) 10.5 X10'3 (1.8-7.7); NEUTROPHILS % (AUTO) 86.4 % (42-75); PLATELET COUNT 96 X10'3 (140-440); RED BLOOD COUNT 2.98 X10'6 (4.20-5.60); RED CELL DISTRIBUTION WIDTH 15.1 % (11.5-14.5); WHITE BLOOD COUNT 12.1 X10'3 (4.5-11.0)
[2023-01-26 03:09] LABS: ALBUMIN 4.1 G/DL (3.4-5.0); ANION GAP 7 (8-16); BLOOD UREA NITROGEN 17 MG/DL (7-18); BUN/CREATININE RATIO 28.8 (10.0-20.0); CALCIUM 8.5 MG/DL (8.5-10.1); CHLORIDE 99 MMOL/L (99-107); CREATININE 0.59 MG/DL (0.40-0.90); GLUCOSE 124 MG/DL (70-104); MAGNESIUM 2.5 MG/DL (1.5-2.4); POTASSIUM 4.2 MMOL/L (3.5-5.1); SODIUM 135 MMOL/L (135-145); eGFR > 90 ML/MIN
[2023-01-26] MEDS: HYDROcodone/acetaminophen 10/325mg tab PO PRN (03:15)
--- NOTE | 2023-01-26 06:31 | NUR ---
Problems reprioritized. Patient report given, questions answered & plan of care reviewed with VENANCIO Milner.
[2023-01-26] MEDS: levoTHYROXINE 25mcg tablet PO SCH (07:42)
[2023-01-26] MEDS: pantoprazole 40mg Tablet.DR PO SCH (07:43)
[2023-01-26] MEDS: sennosides/docusate sodium tablet PO SCH ×2 (07:43→20:54)
[2023-01-26] MEDS: metoprolol tartrate 12.5mg (1/2 tablet) PO SCH ×2 (07:43→20:54)
[2023-01-26] MEDS: aspirin 81mg tab.chew PO SCH (07:43)
--- NOTE | 2023-01-26 10:11 | NUR ---
Initial: Pt admit DX CAD, aneurysm of ascending thoracic aorta, and afib now post-op day 3 s/p ACR, aortoplasty, and CABG per EMR. PO 75-100% initial heart healthy meals pre-op though declining first 3 meals post-op ~29% avg not meeting needs. Noted pt more confused s/p norco today per surgeon note. RD recommends Ensure Enlive TIDWM to assist meeting needs; MD notified. LBM 01/23 receiving routine Senna-S per EMR. Noted Phos 2.0mg/dl this AM; RD d/w RN regarding replacement per MD discretion. Will monitor for further PO trends and nutrition intervention needs this admit. Rec: 1. continue NCS diet per MD; encourage PO 2. Ensure Enlive TIDWM to assist meeting needs; pending MD verification in EMR 3. routine bowel care 4. daily wt 5. high protein/heart healthy diet eds once more appropriate post-op prior to discharge Addendum: 01/26/23 at [address] Amended: Links added.
[2023-01-26 10:25] LABS: BASOPHILS % (AUTO) 0 % (0-1); EOSINOPHILS % (AUTO) 0 % (0-6); HEMATOCRIT 28.9 % (35.0-45.0); HEMOGLOBIN 9.7 g/dl (12.0-16.0); LYMPHOCYTES # (AUTO) 0.8 X10'3 (1.1-4.8); LYMPHOCYTES % (AUTO) 6.4 % (21-51); MEAN CORPUSCULAR HEMOGLOBIN 31.5 PG (27.0-31.0); MEAN CORPUSCULAR HGB CONC 33.5 g/dL (33.0-36.5); MEAN CORPUSCULAR VOLUME 94.1 FL (78-98); MEAN PLATELET VOLUME 9.8 FL (7.4-10.4); MONOCYTES % (AUTO) 8.4 % (2-12); NEUTROPHILS % (AUTO) 85.2 % (42-75); PLATELET COUNT 94 X10'3 (140-440); RED BLOOD COUNT 3.07 X10'6 (4.20-5.60); RED CELL DISTRIBUTION WIDTH 14.8 % (11.5-14.5); WHITE BLOOD COUNT 11.8 X10'3 (4.5-11.0)
[2023-01-26 10:34] LABS: ANION GAP 6 (8-16); BLOOD UREA NITROGEN 19 MG/DL (7-18); BUN/CREATININE RATIO 30.6 (10.0-20.0); CALCIUM 8.7 MG/DL (8.5-10.1); CHLORIDE 100 MMOL/L (99-107); CREATININE 0.62 MG/DL (0.40-0.90); GLUCOSE 128 MG/DL (70-104); SODIUM 136 MMOL/L (135-145); TOTAL CARBON DIOXIDE 30.2 MMOL/L (24-32); eGFR > 90 ML/MIN
[2023-01-26] MEDS ORDERED: amiodarone 150mg/dext, iso-os 100 ML IV ONE (14:10)
[2023-01-26] MEDS: amiodarone/D5 360MG/200ML BAG 200 ML IV SCH (14:51)
--- NOTE | 2023-01-26 18:22 | NUR ---
Problems reprioritized. Patient report given, questions answered & plan of care reviewed with VENANCIO Velasco.
--- NOTE | 2023-01-26 18:30 | NUR ---
Patient in room CICU 2010. I have received report from VENANCIO Milner and had the opportunity to ask questions and assume patient care.
[2023-01-26] MEDS: atorvastatin 10mg tablet PO SCH (20:54)
[2023-01-27] VITALS (23 sets, daily range): BP systolic 75–132; BP diastolic 47–78
[2023-01-27] MEDS: amiodarone/D5 360MG/200ML BAG 200 ML IV SCH (02:44)
--- NOTE | 2023-01-27 06:18 | NUR ---
Problems reprioritized. Patient report given, questions answered & plan of care reviewed with VENANCIO Coles.
--- NOTE | 2023-01-27 07:14 | NUR ---
Patient in room CICU 2010. I have received report from Krista CRAFT and had the opportunity to ask questions and assume patient care.
[2023-01-27 07:19] LABS: BASOPHILS % (AUTO) 0.2 % (0-1); EOSINOPHILS # (AUTO) 0.1 X10'3 (0-0.9); EOSINOPHILS % (AUTO) 0.5 % (0-6); HEMATOCRIT 29.3 % (35.0-45.0); HEMOGLOBIN 9.9 g/dl (12.0-16.0); MEAN CORPUSCULAR HEMOGLOBIN 31.8 PG (27.0-31.0); MEAN CORPUSCULAR HGB CONC 33.8 g/dL (33.0-36.5); MEAN CORPUSCULAR VOLUME 94.2 FL (78-98); MEAN PLATELET VOLUME 9.5 FL (7.4-10.4); MONOCYTES # (AUTO) 0.8 X10'3 (0-0.9); MONOCYTES % (AUTO) 7.4 % (2-12); NEUTROPHILS # (AUTO) 8.4 X10'3 (1.8-7.7); NEUTROPHILS % (AUTO) 81.9 % (42-75); PLATELET COUNT 103 X10'3 (140-440); RED BLOOD COUNT 3.11 X10'6 (4.20-5.60); RED CELL DISTRIBUTION WIDTH 14.7 % (11.5-14.5); WHITE BLOOD COUNT 10.3 X10'3 (4.5-11.0)
[2023-01-27] MEDS: levoTHYROXINE 25mcg tablet PO SCH (07:33)
[2023-01-27 07:44] LABS: ALBUMIN 3.6 G/DL (3.4-5.0); ANION GAP 8 (8-16); BLOOD UREA NITROGEN 21 MG/DL (7-18); BUN/CREATININE RATIO 33.3 (10.0-20.0); CALCIUM 8.8 MG/DL (8.5-10.1); CHLORIDE 102 MMOL/L (99-107); CREATININE 0.63 MG/DL (0.40-0.90); GLUCOSE 112 MG/DL (70-104); MAGNESIUM 2.2 MG/DL (1.5-2.4); PHOSPHORUS 2.5 MG/DL (2.3-4.5); POTASSIUM 3.9 MMOL/L (3.5-5.1); SODIUM 138 MMOL/L (135-145); TOTAL CARBON DIOXIDE 27.9 MMOL/L (24-32); eGFR > 90 ML/MIN
[2023-01-27] MEDS: metoprolol tartrate 12.5mg (1/2 tablet) PO SCH ×2 (08:00→20:00)
[2023-01-27 08:13] LABS: ACT @ 1.70 U 251 SEC (193-297); ACT @ 2.84 U 382 SEC (260-420); BASELINE ACT 129 SEC (101-148); PATIENT WEIGHT 63.0k KG
[2023-01-27] MEDS: pantoprazole 40mg Tablet.DR PO SCH (08:18)
[2023-01-27] MEDS: aspirin 81mg tab.chew PO SCH (08:18)
[2023-01-27] MEDS: sennosides/docusate sodium tablet PO SCH ×2 (08:18→20:43)
[2023-01-27] MEDS ORDERED: albumin (Human) 5% 250ml 250 ML IV ONE (09:05)
--- NOTE | 2023-01-27 09:05 | NUR ---
called Dr. Mcwilliams in regards to patients decreased blood pressure and rhythm change from sinus rhythm to afib, informed him that she is still on the amiodarone drip. New orders to give 5% 250mls of albumin
[2023-01-27] MEDS: Insulin Reg/NS 100units/100mL 100 ML IV SCH (09:24)
[2023-01-27 09:49] LABS: TOTAL HEMOGLOBIN 6.3 G/dl (12.0-16.0)
--- NOTE | 2023-01-27 09:58 | NUR ---
called Dr. Mcwilliams in regards to patient ginger rate of 38 stated not to pull pacer wires, and to start her on hep 5k Q8h, he would also like Gely Pace CONTROL CLERK AUDITING to round on patient
--- NOTE | 2023-01-27 10:45 | NUR ---
F/u 01/27: Pt seen by [facility] for written/verbal high protein/HH diet eds w/ RD contact information provided. PO ~25% initial meals post-op though pt is agreeable to Vanilla Ensure Enlive TIDWM. RD charted in error yesterday; did not notify MD of ONS recs until this AM. Pt reports dislikes beef not allergy just would like other protein options; dietary notified. Rec: 1. continue NCS diet per MD; encourage PO 2. Vanilla Ensure Enlive TIDWM to assist meeting needs; pending MD verification in EMR 3. routine bowel care 4. daily wt 5. high protein/heart healthy diet eds once more appropriate post-op prior to discharge Addendum: 01/27/23 at [address] Amended: Links added.
[2023-01-27] MEDS: lactose-reduced food (Ensure Enlive) - 237ml bottle PO SCH ×2 (13:00→18:00)
[2023-01-27] MEDS: heparin, porcine 5000 units/ml vial SQ SCH (16:00)
[2023-01-27 19:18] LABS: BASOPHILS % (AUTO) 0 % (0-1); EOSINOPHILS # (AUTO) 0.1 X10'3 (0-0.9); EOSINOPHILS % (AUTO) 1.1 % (0-6); HEMATOCRIT 29.8 % (35.0-45.0); HEMOGLOBIN 9.9 g/dl (12.0-16.0); LYMPHOCYTES # (AUTO) 1.3 X10'3 (1.1-4.8); LYMPHOCYTES % (AUTO) 13.6 % (21-51); MEAN CORPUSCULAR HEMOGLOBIN 31.7 PG (27.0-31.0); MEAN CORPUSCULAR HGB CONC 33.3 g/dL (33.0-36.5); MEAN CORPUSCULAR VOLUME 95.3 FL (78-98); MONOCYTES # (AUTO) 0.8 X10'3 (0-0.9); MONOCYTES % (AUTO) 8.6 % (2-12); NEUTROPHILS # (AUTO) 7.1 X10'3 (1.8-7.7); NEUTROPHILS % (AUTO) 76.7 % (42-75); PLATELET COUNT 115 X10'3 (140-440); RED BLOOD COUNT 3.13 X10'6 (4.20-5.60); RED CELL DISTRIBUTION WIDTH 14.9 % (11.5-14.5); WHITE BLOOD COUNT 9.3 X10'3 (4.5-11.0)
[2023-01-27 19:36] LABS: ALBUMIN 3.9 G/DL (3.4-5.0); ANION GAP 11 (8-16); BLOOD UREA NITROGEN 26 MG/DL (7-18); BUN/CREATININE RATIO 38.8 (10.0-20.0); CALCIUM 8.6 MG/DL (8.5-10.1); CHLORIDE 101 MMOL/L (99-107); CREATININE 0.67 MG/DL (0.40-0.90); GLUCOSE 116 MG/DL (70-104); POTASSIUM 4.1 MMOL/L (3.5-5.1); SODIUM 141 MMOL/L (135-145); TOTAL CARBON DIOXIDE 28.8 MMOL/L (24-32); eGFR 84 ML/MIN
[2023-01-27] MEDS: atorvastatin 10mg tablet PO SCH (20:43)
[2023-01-28] VITALS (24 sets, daily range): BP systolic 63–127; BP diastolic 40–74
[2023-01-28] MEDS: heparin, porcine 5000 units/ml vial SQ SCH ×3 (00:53→15:56)
[2023-01-28 02:59] LABS: MAGNESIUM 1.9 MG/DL (1.5-2.4); PHOSPHORUS 2.7 MG/DL (2.3-4.5); POTASSIUM 3.8 MMOL/L (3.5-5.1)
--- NOTE | 2023-01-28 06:11 | NUR ---
Problems reprioritized. Patient report given, questions answered & plan of care reviewed with VENANCIO Coles.
[2023-01-28] MEDS: lactose-reduced food (Ensure Enlive) - 237ml bottle PO SCH ×3 (08:00→18:08)
[2023-01-28] MEDS: metoprolol tartrate 12.5mg (1/2 tablet) PO SCH (08:00)
[2023-01-28 08:16] LABS: BASOPHILS % (AUTO) 0.3 % (0-1); EOSINOPHILS # (AUTO) 0.2 X10'3 (0-0.9); EOSINOPHILS % (AUTO) 2.2 % (0-6); HEMATOCRIT 29.5 % (35.0-45.0); HEMOGLOBIN 9.9 g/dl (12.0-16.0); LYMPHOCYTES # (AUTO) 1.5 X10'3 (1.1-4.8); LYMPHOCYTES % (AUTO) 19.1 % (21-51); MEAN CORPUSCULAR HEMOGLOBIN 32.1 PG (27.0-31.0); MEAN CORPUSCULAR HGB CONC 33.6 g/dL (33.0-36.5); MEAN CORPUSCULAR VOLUME 95.8 FL (78-98); MEAN PLATELET VOLUME 9.4 FL (7.4-10.4); MONOCYTES # (AUTO) 0.8 X10'3 (0-0.9); MONOCYTES % (AUTO) 10.1 % (2-12); NEUTROPHILS # (AUTO) 5.2 X10'3 (1.8-7.7); NEUTROPHILS % (AUTO) 68.3 % (42-75); PLATELET COUNT 117 X10'3 (140-440); RED BLOOD COUNT 3.08 X10'6 (4.20-5.60); RED CELL DISTRIBUTION WIDTH 14.6 % (11.5-14.5); WHITE BLOOD COUNT 7.7 X10'3 (4.5-11.0)
[2023-01-28 08:31] LABS: ALBUMIN 3.4 G/DL (3.4-5.0); ANION GAP 9 (8-16); BLOOD UREA NITROGEN 24 MG/DL (7-18); BUN/CREATININE RATIO 41.4 (10.0-20.0); CALCIUM 8.7 MG/DL (8.5-10.1); CHLORIDE 102 MMOL/L (99-107); CREATININE 0.58 MG/DL (0.40-0.90); GLUCOSE 95 MG/DL (70-104); POTASSIUM 3.8 MMOL/L (3.5-5.1); SODIUM 138 MMOL/L (135-145); eGFR > 90 ML/MIN
--- NOTE | 2023-01-28 09:00 | NUR ---
Dr. Mcwilliams by to round on patient, new orders, hold metoprolol for today, transfer to PCU with tele, and the will remove the pacer wires
[2023-01-28] MEDS: levoTHYROXINE 25mcg tablet PO SCH (09:12)
[2023-01-28] MEDS: pantoprazole 40mg Tablet.DR PO SCH (09:12)
[2023-01-28] MEDS: sennosides/docusate sodium tablet PO SCH ×2 (09:12→19:28)
[2023-01-28] MEDS: aspirin 81mg tab.chew PO SCH (09:12)
--- NOTE | 2023-01-28 10:30 | NUR ---
Gely Brown CUT ORDER HAND present during patients episode of hypotension , she called dr Mcwilliams he ordered albumin 5% in 250mls
[2023-01-28] MEDS ORDERED: albumin (Human) 5% 250ml 250 ML IV ONE (10:35)
--- NOTE | 2023-01-28 12:03 | NUR ---
called Dr. Mcwilliams in regards to patients SBP still being in the 70s and 80s despite giving her a one time dose of 5% 250ml bottle of albumin. Stated that he will look into and to keep her here and monitor her
[2023-01-28] MEDS ORDERED: midodrine tablet 2.5 MG TABLET PO ONE (12:55)
[2023-01-28] MEDS: midodrine tablet 2.5 MG TABLET PO SCH (15:56)
--- NOTE | 2023-01-28 18:10 | NUR ---
Problems reprioritized. Patient report given, questions answered & plan of care reviewed with Titus CRAFT.
[2023-01-28] MEDS: atorvastatin 10mg tablet PO SCH (21:00)
[2023-01-29] VITALS (14 sets, daily range): BP systolic 83–122; BP diastolic 51–73
[2023-01-29 06:22] LABS: PHOSPHORUS 3.7 MG/DL (2.3-4.5); POTASSIUM 3.7 MMOL/L (3.5-5.1)
[2023-01-29] MEDS ORDERED: magnesium 2GM in 50ml NS 50 ML IV PRN (07:30)
[2023-01-29] MEDS ORDERED: potassium CL 10mEq/100ml bag 100 ML IV PRN (07:30)
[2023-01-29] MEDS ORDERED: potassium Cl 40MEQ/1/2NS 520ml 520 ML IV PRN (07:30)
[2023-01-29] MEDS ORDERED: magnesium 4gm in 100ml NS 100 ML IV PRN (07:30)
[2023-01-29] MEDS ORDERED: potassium Cl 40MEQ/270ML bag 250 ML IV PRN (07:30)
[2023-01-29] MEDS ORDERED: potassium Cl 20 mEq SR tablet PO PRN ×2 (07:30)
[2023-01-29] MEDS ORDERED: potassium Cl 20mEq/100mL bag 100 ML IV PRN (07:30)
[2023-01-29] MEDS: levoTHYROXINE 25mcg tablet PO SCH (07:34)
[2023-01-29] MEDS ORDERED: magnesium Cl slow-release 64mg tablet PO SCH (08:00)
[2023-01-29] MEDS: aspirin 81mg tab.chew PO SCH (08:30)
[2023-01-29] MEDS: pantoprazole 40mg Tablet.DR PO SCH (08:40)
[2023-01-29] MEDS: sennosides/docusate sodium tablet PO SCH (08:42)
[2023-01-29] MEDS: midodrine tablet 2.5 MG TABLET PO SCH ×2 (08:43→12:16)
[2023-01-29] MEDS: lactose-reduced food (Ensure Enlive) - 237ml bottle PO SCH ×2 (08:59→12:22)
[2023-01-29] MEDS: heparin, porcine 5000 units/ml vial SQ SCH ×2 (09:00)
--- NOTE | 2023-01-29 10:30 | NUR ---
Patient up in chair, Phys therapy bedside to walk patient, patient difficult to rouse, opens eyes but does not verbally respond. Charge nurse called to bedside, instructed to call a stroke alert. Called Dr. Mcwilliams, reviewed vitals and current mental status, SBP in the 70 to 80s rhytm afib with rate in the 80s. Stated to give her a one time dose fo 25% 100mls of albumin. Checked blood sugar, 118 on accucheck. Stated he will be bedisde shortly to assess patient. No other new orders at this time
[2023-01-29] MEDS ORDERED: albumin (human) 25% 100 ML IV solution IV ONE (10:35)
--- NOTE | 2023-01-29 10:37 | NUR ---
Nutrition consult: Pt has already been seen for post CABG and AVR nutrition therapy education, please see prior RD note. Addendum: 01/29/23 at [address] Amended: Links added.
--- NOTE | 2023-01-29 10:50 | NUR ---
Dr. Mcwilliams bedside to asses patient, mentation back to baseline, stated to proceed with transfer to [facility] new orders to be entered by him justina
[2023-01-29 10:51] LABS: ABG BASE EXCESS 2.5 mmol/L (-2.0-2.0); ABG HCO3 24.6 mmol/L (22.0-26.0); ABG OXYGEN SATURATION 95.9 % (94-97); ABG PO2 (T) 77.7 mmHg (75.0-100.0); ALLEN'S TEST POSITIVE; FCOHb 0.3 % (0.0-3.9); FLOW 2 L/min; FMetHb 0.4 % (0.0-1.5); FO2Hb 95.2 % (94-97); PATIENT TEMPERATURE 36.6; TOTAL HEMOGLOBIN 10.5 G/dl (12.0-16.0)
--- NOTE | 2023-01-29 13:29 | NUR ---
called report to ready post acute, spoke to shila, reviewed labs, systems and meds all questions answered to satisfaction
[2023-01-29] MEDS ORDERED: apixaban 2.5mg tablet PO SCH (20:00)
== END 2023-01-29 14:45 | DRG 220 ==
LOC: PAS IN 06:12 → PCU 3S 11:45 → CICU 2S 01-23 09:07
PROVIDERS: ADMIT Thoracic Surgery (Cardiothoracic Vascular Surgery); ATTEND Thoracic Surgery (Cardiothoracic Vascular Surgery)
PROC: 02RF08Z Replacement of Aortic Valve with Zooplastic Tissue, Open Approach (ICD-10-PCS; 2023-01-23)
PROC: 021009W Bypass Coronary Artery, One Artery from Aorta with Autologous Venous Tissue, Open Approach (ICD-10-PCS; 2023-01-23)
PROC: 06BQ4ZZ Excision of Left Saphenous Vein, Percutaneous Endoscopic Approach (ICD-10-PCS; 2023-01-23)
PROC: 02UX0JZ Supplement Thoracic Aorta, Ascending/Arch with Synthetic Substitute, Open Approach (ICD-10-PCS; 2023-01-23)
PROC: B24BZZ4 Ultrasonography of Heart with Aorta, Transesophageal (ICD-10-PCS; 2023-01-23)
PROC: 5A1221Z Performance of Cardiac Output, Continuous (ICD-10-PCS; 2023-01-23)
PROC: 02L70CK Occlusion of Left Atrial Appendage with Extraluminal Device, Open Approach (ICD-10-PCS; 2023-01-23)
PROC: 30233K1 Transfusion of Nonautologous Frozen Plasma into Peripheral Vein, Percutaneous Approach (ICD-10-PCS; 2023-01-23)
PROC: 30233N1 Transfusion of Nonautologous Red Blood Cells into Peripheral Vein, Percutaneous Approach (ICD-10-PCS; 2023-01-23)
PROC: 30233R1 Transfusion of Nonautologous Platelets into Peripheral Vein, Percutaneous Approach (ICD-10-PCS; 2023-01-23)
PROC: 02100Z9 Bypass Coronary Artery, One Artery from Left Internal Mammary, Open Approach (ICD-10-PCS; principal; 2023-01-23 07:43)
DX: I35.1 Nonrheumatic aortic (valve) insufficiency (principal); D62 Acute posthemorrhagic anemia; D68.9 Coagulation defect, unspecified; I25.10 Atherosclerotic heart disease of native coronary artery without angina pectoris; I10 Essential (primary) hypertension; E78.5 Hyperlipidemia, unspecified; I48.0 Paroxysmal atrial fibrillation; I71.21 Aneurysm of the ascending aorta, without rupture; I45.9 Conduction disorder, unspecified; R00.1 Bradycardia, unspecified; Z79.899 Other long term (current) drug therapy; Z85.72 Personal history of non-Hodgkin lymphomas
CPT/HCPCS: 36415; 36430; 36600; 71045; 71046; 80048; 80053; 81003; 82330; 82435; 82803; 82947; 82948; 83036; 83735; 84100; 84132; 84295; 84443; 85007; 85018; 85025; 85347; 85384; 85610; 85730; 86885; 86900; 86901; 86920; 87081; 93005; 93312; 93325; 93880; 93970; 94002; 94003; 94010; 94664; 94668; 94760; 97110; 97116; 97161; 97530; A4333; A4615; A4618; A4620; A6213; A6258; A6449; A7000; A7048; C1751; C1768; G0378; J0171; J0282; J0690; J1644; J1815; J2060; J2150; J2250; J2270; J2704; J2720; J2930; J3370; J3475; J3480; J3490; J7030; J7040; J7050; J7120; P9016; P9035; P9045; P9047; P9059; S0020